=== PATIENT | male | born 1950 | race Caucasian/White ===

== ENCOUNTER → 2016-11-08 | Outpatient (CLI) | payer MEDICARE ==
[~2016-11-08] MED LIST: NAPR220T77 PO
== END | disposition home or self-care (01) ==
LOC: ROC 15:06
PROVIDERS: ATTEND Radiology Radiation Oncology
DX: C85.81 Other specified types of non-Hodgkin lymphoma, lymph nodes of head, face, and neck (principal)
CPT/HCPCS: 99212; G0463

== ENCOUNTER → 2017-06-16 | Outpatient (CLI) | payer MEDICARE | END | disposition home or self-care (01) | LOC: PETCFH 12:33 | PROVIDERS: ATTEND Internal Medicine Hematology & Oncology | DX: C81.78 Other Hodgkin lymphoma, lymph nodes of multiple sites (principal); D47.9 Neoplasm of uncertain behavior of lymphoid, hematopoietic and related tissue, unspecified | CPT/HCPCS: 78815; A9552 ==

== ENCOUNTER → 2017-09-26 | Outpatient (CLI) | payer MEDICARE ==
[~2017-09-26] MED LIST changes: +OMNIPAQUE 350 MG/ML, 150 ML BOTTLE ONE
== END | disposition home or self-care (01) ==
LOC: CFH 14:07
PROVIDERS: ATTEND Internal Medicine Hematology & Oncology
DX: J84.10 Pulmonary fibrosis, unspecified (principal); J98.11 Atelectasis; C85.80 Other specified types of non-Hodgkin lymphoma, unspecified site
CPT/HCPCS: 70491; 71260; Q9967

== ENCOUNTER 2018-10-09 08:54 | Outpatient (CLI) | payer MEDICARE | END 2018-10-09 23:59 | disposition home or self-care (01) | LOC: CFH 08:54 | PROVIDERS: ATTEND Internal Medicine Hematology & Oncology | DX: C81.78 Other Hodgkin lymphoma, lymph nodes of multiple sites (principal); C85.80 Other specified types of non-Hodgkin lymphoma, unspecified site; D47.9 Neoplasm of uncertain behavior of lymphoid, hematopoietic and related tissue, unspecified; N28.1 Cyst of kidney, acquired; K57.30 Diverticulosis of large intestine without perforation or abscess without bleeding; M47.894 Other spondylosis, thoracic region; K63.89 Other specified diseases of intestine | CPT/HCPCS: 70491; 71260; 74177; Q9967 ==